=== PATIENT | male | born 1985 | race Two or more races ===

== ENCOUNTER 2018-11-17 13:10 | Emergency (ER) | payer OTHER ==
[2018-11-17] MEDS ORDERED: LIDOCAINE 1%/EPINEPHRINE INJ 20 ML VIAL INJ ONE (14:17)
--- NOTE | 2018-11-17 15:04 | RADIOLOGY REPORT (SQ) ---
EXAM DESCRIPTION: HAND LEFT 2 VIEWS COMPLETED DATE/TIME: 11/17/2018 2:49 pm REASON FOR STUDY: lac, r/o fb COMPARISON: None. EXAM PARAMETERS: NUMBER OF VIEWS: Two view. TECHNIQUE: AP and lateral radiographic images acquired of the left hand. LIMITATIONS: None. FINDINGS: MINERALIZATION: Normal. BONES: No acute fracture or dislocation. No worrisome bone lesions. JOINTS: No effusions. SOFT TISSUES: No soft tissue swelling. No foreign body. OTHER: No other significant finding. IMPRESSION: NEGATIVE STUDY OF THE LEFT HAND. NO RADIOGRAPHIC EVIDENCE OF ACUTE INJURY. TECHNICAL DOCUMENTATION: JOB ID: [id number] [employer]- All Rights Reserved Reading location - IP/workstation name: [email or web address]
--- NOTE | 2018-11-17 16:19 | ER Document Report ---
ED General - General Chief Complaint: Laceration Stated Complaint: LACERATION TO LEFT HAND Time Seen by Provider: 11/17/18 14:17 Mode of Arrival: Ambulatory Information source: Patient Notes: This is a 33-year-old man that was at work walking on drywall and accidentally lacerated his left hand with a razor blade. He did state it bled a fair amount on the job and has since stopped. Patient does report that his tetanus is up-to-date having had it within the last 5 years. TRAVEL OUTSIDE OF THE [place] IN LAST 30 DAYS: No - HPI Onset: Just prior to arrival Onset/Duration: Sudden Quality of pain: Sharp Severity: Mild Pain Level: 1 Associated symptoms: denies: Chest pain, Shortness of breath Exacerbated by: Denies Relieved by: Denies Similar symptoms previously: No Recently seen / treated by doctor: No - Related Data Allergies/Adverse Reactions: No Known Allergies Allergy (Unverified 11/17/18 13:24) Past Medical History - General Information source: Patient - Social History Smoking Status: Never Smoker Cigarette use (# per day): No Chew tobacco use (# tins/day): No Frequency of alcohol use: Occasional Drug Abuse: None Lives with: Family Family History: None Patient has suicidal ideation: No Patient has homicidal ideation: No Pulmonary Medical History: Reports: Hx Pneumonia Renal/ Medical History: Denies: Hx Peritoneal Dialysis Surgical Hx: Negative Review of Systems - Review of Systems Constitutional: denies: Chills, Fever Musculoskeletal: See HPI Skin: See HPI Physical Exam - Vital signs Vitals: Temp Pulse Resp BP Pulse Ox 98.1 F 57 L 20 97/55 L 100 11/17/18 13:16 11/17/18 13:16 11/17/18 13:16 11/17/18 13:16 11/17/18 13:16 Notes: Left hand: Patient has on the extensor surface of the left hand between the index finger and the thumb. Extensor tendons to the thumb and to the first digit are intact. Flexor tendons are intact as well. Digits are neurovascularly intact. Patient has no problem with thumb pinky opposition. Sensory is intact. Course - Vital Signs Vital signs: Temp Pulse Resp BP Pulse Ox 98.2 F 75 18 103/88 H 97 11/17/18 16:35 11/17/18 16:35 11/17/18 16:35 11/17/18 16:35 11/17/18 16:35 Procedures - Laceration/Wound Repair Left Hand Time completed: 15:00 Wound length (cm): 3 Wound's Depth, Shape: Linear Laceration pre-procedure: Chloraprep applied, Sterile drapes applied Anesthetic type: 1% Lidocaine w/epi Volume Anesthetic (mLs): 4 Wound explored: Clean, No foreign body removed Irrigated w/ Saline (mLs): 500 Wound Debrided: Minimal Wound Repaired With: Sutures - 5 4-0 nylon sutures., Steri-strips Suture Size/Type: 4:0 Number of Sutures: 5 Layer Closure?: No Post-procedure wound care: Sterile dressing applied, Splint applied Post-procedure NV exam normal: Yes Complications: Yes Notes: 11/17/18 21:46 Patient did have a fair amount of bleeding during the procedure which appeared to be venous (it was nonpulsatile) and it initially responded well to compression. The wound was dressed and the patient discharged. He did return short while later because of bleeding from the wound. When the dressings were taken off. There was again no active bleeding. We did compression (just in case) and kept the patient in the emergency room for some time and we observed it. And there was no further bleeding. The Steri-Strips which were placed to reinforce the sutures had come off so I did add some Dermabond. We did redress the wound and applied a thumb spica for support and again he was watched and he had no further bleeding and he was discharged. We will have him back tomorrow for a wound check and the sutures should come out in a week. Discharge - Discharge Clinical Impression: Left hand laceration Condition: Stable Disposition: HOME, SELF-CARE Additional Instructions: Keep the bulky dressing on until the wound check tomorrow. You can take the co-band off before bed. Keep the extremity elevated at night. Avoid getting the hand wet. Avoid secondary injury with that hand. Return tomorrow for a wound check. The sutures will need to come out in 7 days. To the emergency room for any fever, worsening pain or any concerns of infection (redness, fever-temperature 100.5.). Forms: Follow up (Sutures/[place]), Return to Work, Follow-Up (Wound)
[2018-11-17 16:37] VITALS: BP 103/88
== END 2018-11-17 16:37 | disposition home or self-care (01) ==
LOC: ER 13:10
DX: S61.412A Laceration without foreign body of left hand, initial encounter (principal); W26.8XXA Contact with other sharp object(s), not elsewhere classified, initial encounter; Y93.89 Activity, other specified; Y99.0 Civilian activity done for income or pay
CPT/HCPCS: 99283; 73120; 12002; J3490

== ENCOUNTER 2018-11-18 12:56 | Emergency (ER) | payer OTHER ==
--- NOTE | 2018-11-18 13:48 | ER Document Report ---
ED General - General Chief Complaint: Wound Recheck Stated Complaint: SUTURE CHECK Time Seen by Provider: 11/18/18 13:40 Notes: 33-year male presents for wound check on his left hand where he had a wound with a razor blade it was difficult to suture and required sutures hemostatic substance and glue. Placed in a splint for protection. He says the splint is bothering him but he has no worse pain. No numbness or tingling. TRAVEL OUTSIDE OF THE [place] IN LAST 30 DAYS: No - Related Data Allergies/Adverse Reactions: No Known Allergies Allergy (Verified 11/18/18 13:04) Past Medical History - Social History Smoking Status: Unknown if Ever Smoked Family History: None Pulmonary Medical History: Reports: Hx Pneumonia Renal/ Medical History: Denies: Hx Peritoneal Dialysis Review of Systems - Review of Systems Notes: REVIEW OF SYSTEMS GEN: Denies fever, chills, weight loss ENT: Denies sore throat, nasal discharge, ear pain EYES: Denies blurry vision, eye pain, discharge CV: Denies chest pain, palpitations, edema RESP: Denies cough, shortness of breath, wheezing GI: Denies abdominal pain, nausea, vomiting, diarrhea MSK: Hand pain SKIN: Denies rash, skin lesions LYMPH: Denies swollen glands/lymph nodes NEURO: Denies headache, focal weakness or numbness, dizziness PSYCH: Denies depression, suicidal or homicidal ideation PHYSICAL EXAMINATION General: No acute distress, well-nourished Head: Atraumatic, normocephalic ENT: Mouth normal, oropharynx moist, no exudates or tonsillar enlargement Eyes: Conjunctiva normal, pupils equal, lids normal Neck: No JVD, supple, no guarding CVS: Normal rate, regular rhythm, no murmurs Resp: No resp distress, equal and normal breath sounds bilaterally GI: Nondistended, soft, no tenderness to palpation, no rebound or guarding Ext: Splint and bandage removed. Laceration to the dorsal left first webspace well approximated covered and glue with no signs of infection. Compartments soft. Back: No CVA or midline TTP Skin: No rash, warm Lymphatic: No lymphadeopathy noted Neuro: Awake, alert. Face symmetric. GCS 15. Course - Re-evaluation Re-evalutation: 11/18/18 13:47 Wound check looks great no bleeding no infection. Remove splint, unnecessary and the patient does not want it. Discharge we will follow-up suture removal in 10 days. I have discussed with the patient there likely diagnosis, aftercare plan, follow-up plans and my usual and customary return precautions. They verbalized understanding of this. Discharge - Discharge Clinical Impression: Laceration of left hand Qualifiers: Encounter type: subsequent encounter Foreign body presence: without foreign body Qualified Code(s): S61.412D - Laceration without foreign body of left hand, subsequent encounter Condition: Good Disposition: HOME, SELF-CARE Instructions: Laceration Care ([facility])
[2018-11-18 13:57] VITALS: BP 109/64
== END 2018-11-18 13:58 | disposition home or self-care (01) ==
LOC: ER 12:56
DX: S61.412D Laceration without foreign body of left hand, subsequent encounter (principal); W26.8XXD Contact with other sharp object(s), not elsewhere classified, subsequent encounter

== ENCOUNTER 2018-11-23 15:55 | Emergency (ER) | payer OTHER ==
--- NOTE | 2018-11-23 16:52 | ER Document Report ---
ED Medical Screen (RME) - General Chief Complaint: Swollen Glands Stated Complaint: SWOLLEN LYMPH NODE Time Seen by Provider: 11/23/18 16:51 Mode of Arrival: Ambulatory Information source: Patient Notes: 33-year-old male presented to ED for complaint of swollen lymph nodes in the left axilla. He states he had a laceration to the left hand 6 days ago on Thursday. He states they resutured his hand up sending home no antibiotics states by Thursday he had his lymph nodes swollen and painful. States the hand does not hurt now but the lymph node is painful. He does have redness and warmth to the left arm. Patient is alert oriented respirations regular and unlabored speaking in full sentences. I have greeted and performed a rapid initial assessment of this patient. A comprehensive ED assessment and evaluation of the patient, analysis of test results and completion of medical decision making process will be conducted by an additional ED providers. Dictation of this chart was performed using voice recognition software; therefore, there may be some unintended grammatical errors. TRAVEL OUTSIDE OF THE [place] IN LAST 30 DAYS: No - Related Data Allergies/Adverse Reactions: No Known Allergies Allergy (Verified 11/18/18 13:04) Past Medical History - Social History Chew tobacco use (# tins/day): No Drug Abuse: None Pulmonary Medical History: Reports: Hx Pneumonia Renal/ Medical History: Denies: Hx Peritoneal Dialysis Physical Exam - Vital signs Vitals: Temp Pulse Resp BP Pulse Ox 98.2 F 85 17 112/71 98 11/23/18 16:32 11/23/18 16:32 11/23/18 16:32 11/23/18 16:32 11/23/18 16:32 Course - Vital Signs Vital signs: Temp Pulse Resp BP Pulse Ox 98.2 F 85 17 112/71 98 11/23/18 16:32 11/23/18 16:32 11/23/18 16:32 11/23/18 16:32 11/23/18 16:32
[2018-11-23 19:08] LABS: ABSOLUTE BASOPHILS # (AUTO) 0.1 10^3/uL (0.0-0.2); ABSOLUTE EOSINOPHILS # (AUTO) 0.4 10^3/uL (0.0-0.6); ABSOLUTE LYMPHOCYTES (AUTO) 2.3 10^3/uL (0.5-4.7); ABSOLUTE MONOCYTES (AUTO) 0.5 10^3/uL (0.1-1.4); ABSOLUTE NEUT (AUTO) 4.2 10^3/uL (1.7-8.2); BASOPHILS % (AUTO) 0.8 % (0-2); EOSINOPHILS % (AUTO) 5.9 % (0-6); HEMATOCRIT 45.4 % (37.9-51.0); LYMPHOCYTES % (AUTO) 30.4 % (13-45); MEAN CORPUSCULAR HEMOGLOBIN 31.3 pg (27.0-33.4); MEAN CORPUSCULAR HGB CONC 35.2 g/dL (32.0-36.0); MEAN CORPUSCULAR VOLUME 89 fl (80-97); PLATELET COUNT 254 10^3/uL (150-450); SEGMENTED NEUTROPHILS % (AUTO) 55.9 % (42-78); TOTAL CELLS COUNTED % (AUTO) 100 %; WHITE BLOOD COUNT 7.6 10^3/uL (4.0-10.5)
[2018-11-23 19:29] LABS: ALANINE AMINOTRANSFERASE 72 U/L (21-72); ALBUMIN 4.4 g/dL (3.5-5.0); ALKALINE PHOSPHATASE 70 U/L (38-126); ANION GAP 10 (5-19); ASPARTATE AMINO TRANSFERASE 32 U/L (17-59); BILIRUBIN,DIRECT 0.3 mg/dL (0.0-0.4); BILIRUBIN,TOTAL 0.7 mg/dL (0.2-1.3); BLOOD UREA NITROGEN 13 mg/dL (7-20); CALCIUM 9.8 mg/dL (8.4-10.2); CARBON DIOXIDE 28 mmol/L (22-30); CHLORIDE 102 mmol/L (98-107); GLUCOSE 112 mg/dL (75-110); POTASSIUM 4.2 mmol/L (3.6-5.0); SODIUM 139.7 mmol/L (137-145); TOTAL PROTEIN 7.5 g/dL (6.3-8.2)
[2018-11-23 19:31] LABS: C-REACTIVE PROTEIN < 5.0 mg/L (<10.0)
[2018-11-23 19:40] LABS: ERYTHROCYTE SEDIMENTATION RATE 11 mm/hr (0-15)
[2018-11-23] MEDS ORDERED: HYDROCODONE/ACETAMINOPHEN 5-325 MG (6 TAB/ER DISP) PO PRN (20:48)
[2018-11-23] MEDS ORDERED: SULFAMETHOXAZOLE/TRIMETHOPRIM 800-160 MG TABLET PO ONE (20:48)
--- NOTE | 2018-11-23 20:54 | ER Document Report ---
ED General - General Chief Complaint: Swollen Glands Stated Complaint: SWOLLEN LYMPH NODE Time Seen by Provider: 11/23/18 16:51 Mode of Arrival: Ambulatory Information source: Patient, [facility] Records Notes: 33-year-old male with no reported past medical history presents with complaint of left axillary pain. Patient states pain started 2 days prior to arrival. He describes it as throbbing, aching. Patient reports that he had a hand laceration which was sutured 5 days prior to arrival. He has no pain or swelling of the hand. Patient denies any fever, chills, nausea, vomiting. Denies history of MRSA. TRAVEL OUTSIDE OF THE [place] IN LAST 30 DAYS: No - HPI Onset: Other Onset/Duration: Gradual, Persistent Quality of pain: Throbbing Severity: Moderate Associated symptoms: denies: Chest pain, Nausea, Vomiting, Shortness of breath Exacerbated by: Denies Relieved by: Denies Similar symptoms previously: No Recently seen / treated by doctor: Yes - Related Data Allergies/Adverse Reactions: No Known Allergies Allergy (Verified 11/18/18 13:04) Past Medical History - General Information source: Patient - Social History Smoking Status: Never Smoker Chew tobacco use (# tins/day): No Drug Abuse: None Lives with: Family Family History: None Patient has suicidal ideation: No Patient has homicidal ideation: No Pulmonary Medical History: Reports: Hx Pneumonia Renal/ Medical History: Denies: Hx Peritoneal Dialysis Review of Systems - Review of Systems Notes: REVIEW OF SYSTEMS: CONSTITUTIONAL : Denies fever, chills, or sweats. Denies recent illness. Denies weight loss, recent hospitalizations. EENT: Denies visual changes, eye pain. Denies sore throat, oral lesions, difficulty swallowing. CARDIOVASCULAR: Denies chest pain. Denies palpitations. Denies lower extremity edema. RESPIRATORY: Denies cough. Denies shortness of breath, wheezing. GASTROINTESTINAL: Denies abdominal pain or distention. Denies nausea, vomiting, or diarrhea. Denies blood in vomitus, stools, or per rectum. Denies black, tarry stools. Denies constipation. GENITOURINARY: Denies difficulty urinating, painful urination, frequency, blood in urine, testicular pain or penile discharge. MUSCULOSKELETAL: Denies back or neck pain or stiffness. Denies joint pain or swelling. SKIN: Denies rash, lesions or sores. HEMATOLOGIC : Denies easy bruising or bleeding. LYMPHATIC: Denies swollen glands. NEUROLOGICAL: Denies confusion or altered mental status. Denies loss of consciousness. Denies dizziness or lightheadedness. Denies headache. Denies weakness or paralysis. Denies problems difficulty with ambulation, slurred speech. Denies sensory loss, numbness, or tingling. Denies seizures. PSYCHIATRIC: Denies anxiety or stress. Denies depression, suicidal ideation, or Physical Exam - Vital signs Vitals: Temp Pulse Resp BP Pulse Ox 98.2 F 85 17 112/71 98 11/23/18 16:32 11/23/18 16:32 11/23/18 16:32 11/23/18 16:32 11/23/18 16:32 - Notes Notes: PHYSICAL EXAMINATION: GENERAL: Well-appearing, well-nourished and in no acute distress. HEAD: Atraumatic, normocephalic. EYES: Pupils equal round and reactive to light, extraocular movements intact, sclera anicteric, conjunctiva are normal. ENT: Nares patent, oropharynx clear without exudates. Moist mucous membranes. NECK: Normal range of motion, supple without lymphadenopathy. Left axillary lymphadenopathy. LUNGS: Breath sounds clear to auscultation bilaterally and equal. No wheezes rales or rhonchi. HEART: Regular rate and rhythm without murmurs ABDOMEN: Soft, nontender, nondistended abdomen. No guarding, no rebound. No masses appreciated. Musculoskeletal: Normal range of motion, no pitting or edema. No cyanosis. NEUROLOGICAL: Cranial nerves grossly intact. Normal speech, normal gait. Normal sensory, motor exams PSYCH: Normal mood, normal affect. SKIN: Warm, Dry, normal turgor, no rashes or lesions noted. Course - Re-evaluation Re-evalutation: Laboratory 11/23/18 11/23/18 18:50 18:50 WBC 7.6 RBC 5.10 Hgb 16.0 Hct 45.4 MCV 89 MCH 31.3 MCHC 35.2 RDW 13.0 Plt Count 254 Seg Neutrophils % 55.9 Lymphocytes % 30.4 Monocytes % 7.0 Eosinophils % 5.9 Basophils % 0.8 Absolute Neutrophils 4.2 Absolute Lymphocytes 2.3 Absolute Monocytes 0.5 Absolute Eosinophils 0.4 Absolute Basophils 0.1 ESR 11 Sodium 139.7 Potassium 4.2 Chloride 102 Carbon Dioxide 28 Anion Gap 10 BUN 13 Creatinine 0.93 Est GFR ( Amer) > 60 Est GFR (Non-Af Amer) > 60 Glucose 112 H Calcium 9.8 Total Bilirubin 0.7 Direct Bilirubin 0.3 Neonat Total Bilirubin Not Reportable Neonat Direct Bilirubin Not Reportable Neonat Indirect Bili Not Reportable AST 32 ALT 72 Alkaline Phosphatase 70 C-Reactive Protein < 5.0 Total Protein 7.5 Albumin 4.4 Temp Pulse Resp BP Pulse Ox 98.2 F 85 17 112/71 98 11/23/18 16:32 11/23/18 16:32 11/23/18 16:32 11/23/18 16:32 11/23/18 16:32 11/23/18 20:51 33-year-old male presents with swelling of the left axilla. Bedside ultrasound was performed and showed no definitive fluid pocket. Area of tenderness does have blood flow which makes me think this is an infected lymph node. Patient was started on Augmentin. Advised to perform warm compresses and return in 48 hours if no improvement. Patient was evaluated and treated as appropriate for the patient's presenting symptoms and complaint, with consideration of any critical or life threatening conditions that may be associated with their obtained history and exam as noted above. All results were discussed with patient and... Patient provided the opportunity to ask questions, and express concerns. Patient was educated on nohemi tments based on their presumed diagnosis as noted above. At this time we will discharge the patient with return precautions and follow-up recommendations. Verbal discharge instructions given a the bedside. Medication warnings reviewed. Patient is in agreement with this plan and has verbalized understanding of return precautions. After careful consideration I feel that that patient can be safely discharged from the emergency department, they were advised to followup with a primary care physician in 2-3 days. Dictation on this chart was performed using voice recognition software and may result in unintended grammatical, spelling, syntax or errors. - Vital Signs Vital signs: Temp Pulse Resp BP Pulse Ox 98.5 F 85 18 125/68 97 11/23/18 21:03 11/23/18 21:03 11/23/18 21:03 11/23/18 21:03 11/23/18 21:03 - Laboratory Result Diagrams: 11/23/18 18:50 11/23/18 18:50 Laboratory results interpreted by me: 11/23/18 18:50 Glucose 112 H Discharge - Discharge Clinical Impression: Lymphadenopathy Condition: Good Disposition: HOME, SELF-CARE Instructions: Lymphadenopathy ([facility]) Additional Instructions: Please perform warm compresses to the area. Please return in 48 hours if no improvement. Follow up with your [id number] hours for further care or return to the ED IMMEDIATELY if symptoms worsen or you have any concerns. If you cannot afford to follow up with your primary care physician a list of low cost clinics have been provided at the end of your discharge papers as well. Most prescribed medications have multiple side effects. The safest thing to do is when filling your prescription speak to your pharmacist regarding possible interactions with your normal home medications and over the counter medications such as Ibuprofen, Tylenol, Benadryl. If you experience any symptoms that cause you discomfort or concern you should discontinue the medication immediately and return to the emergency room or call your primary care physician. Prescriptions: Amox Tr/Potassium Clavulanate [Augmentin 875-125 Tablet] 1 tab PO BID 10 Days #20 tablet
[2018-11-23] MEDS ORDERED: AMOXICILLIN TR/POT CLAVULANATE 500-125 MG TAB PO ONE (20:55)
[2018-11-23 21:04] VITALS: BP 125/68
== END 2018-11-23 21:03 | disposition home or self-care (01) ==
LOC: ER 15:55
DX: R59.1 Generalized enlarged lymph nodes (principal); M79.622 Pain in left upper arm
CPT/HCPCS: 36415; 80053; 85025; 85652; 86140; 87040; 99283

== ENCOUNTER 2018-11-30 14:56 | Emergency (ER) | payer OTHER ==
--- NOTE | 2018-11-30 15:59 | ER Document Report ---
ED Suture/Wound Recheck - General Chief Complaint: Suture Removal Stated Complaint: SUTURE REMOVAL Time Seen by Provider: 11/30/18 15:46 Mode of Arrival: Ambulatory Information source: Patient TRAVEL OUTSIDE OF THE [place] IN LAST 30 DAYS: No - HPI Patient complains to provider of: SUTURE REMOVAL Notes: Patient is here with request for suture removal from the left hand. He accidentally cut his left hand on a razor. Sutures were placed and glue was placed over the sutures. He denies any fever, pain, drainage, numbness, tingli ng, weakness. No complaints. No nausea, vomiting, diarrhea. No other complaints. - Related Data Allergies/Adverse Reactions: No Known Allergies Allergy (Verified 11/30/18 14:57) Past Medical History - Social History Smoking Status: Former Smoker Family History: None Patient has suicidal ideation: No Patient has homicidal ideation: No Pulmonary Medical History: Reports: Hx Pneumonia Renal/ Medical History: Denies: Hx Peritoneal Dialysis Review of Systems - Review of Systems -: Yes All other systems reviewed and negative Physical Exam - Vital signs Vitals: Temp Pulse Resp BP Pulse Ox 98 F 90 18 133/73 H 98 11/30/18 15:00 11/30/18 15:00 11/30/18 15:00 11/30/18 15:00 11/30/18 15:00 - Notes Notes: GENERAL: alert, cooperative, nontoxic, no distress. HEAD: normocephalic, atraumatic EYES: conjunctiva pink without discharge, no external redness or swelling. EARS: no external swelling, no external redness NOSE: atraumatic, no external swelling MOUTH/THROAT: mucous membranes moist and pink, posterior pharynx without erythema, swelling, exudate. No trismus or drooling. NECK: soft, supple, full range of motion, no meningismus. CHEST: no distress, lungs clear and equal throughout. No wheezing, rales, rhonchi. CARDIAC: regular rate and rhythm, no murmur, normal capillary refill, normal pulses. No peripheral edema noted. BACK: full range of motion, no CVA tenderness. EXTREMITIES: full range of motion of all extremities. No redness, no swelling. NEURO: alert and oriented x 3, no focal deficits, full range of motion of all extremities. PYSCH: appropriate mood, affect. Patient is cooperative. SKIN: pink, warm, dry, no rash. Sutures in place of the dorsum of the left hand with no significant erythema, drainage or tenderness. There is some skin glue over top of the sutures. Course - Vital Signs Vital signs: Temp Pulse Resp BP Pulse Ox 98 F 90 18 133/73 H 98 11/30/18 15:00 11/30/18 15:00 11/30/18 15:00 11/30/18 15:00 11/30/18 15:00 Procedures - Additional Procedures Suture removal Additional Procedures: Other - Sutures and glue were removed from the left hand laceration by the nurse. Patient tolerated procedure well. No immediate complications. No sign of infection. Discharge - Discharge Clinical Impression: Visit for suture removal Condition: Stable Disposition: HOME, SELF-CARE Instructions: Suture Removal Additional Instructions: Keep wound clean and dry. Follow-up for increased pain, fever, redness, drainage, any further concerns. Forms: Elevated Blood Pressure, Smoking Cessation Education Referrals: [facility] [Provider Group] - Follow up as needed
[2018-11-30 16:16] VITALS: BP 134/76
== END 2018-11-30 16:10 | disposition home or self-care (01) ==
LOC: ER 14:56
DX: S61.412D Laceration without foreign body of left hand, subsequent encounter (principal); X58.XXXD Exposure to other specified factors, subsequent encounter